=== PATIENT | male | born 1955 ===

== ENCOUNTER 2021-01-09 22:53 | Inpatient (IN) | payer MEDICARE ==
[~2021-01-09] VITALS: Ht 177.8 cm; Wt 89.6 kg
--- NOTE | 2021-01-09 23:07 | NUR ---
PT C/O OF TESTICULAR AND LOWER ABD PAIN EARLIER TODAY WHILE FOLDING TABLES. HE BEGAN TO GET DIAPHORETIC WITH NAUSEA AND VOMITTED DINNER. DENIES CP, DIZZINESS, FEVER/CHILLS, AND SOB. DENIES BURNING WHEN URINATED. LAST BM THIS AM AND NORMAL. ATTACHED TO MONITORS. VSS. NADN. BED IN LOW POSITION, RAILS ENGAGED. CALL LIGHT ON LAP.
[2021-01-09] MEDS ORDERED: ACETAMINOPHEN 500 MG TABLET PO ONE (23:30)
[2021-01-09] MEDS ORDERED: ONDANSETRON 2MG/ML, 2ML IVPush ONE (23:30)
[2021-01-10] MEDS ORDERED: ONDANSETRON 2MG/ML, 2ML ONE ×3 (00:02→08:55)
[2021-01-10] MEDS ORDERED: ACETAMINOPHEN 500 MG TABLET ONE (00:02)
[2021-01-10 00:06] LABS: BASOPHILS % (AUTO) 1 % (0-1); EOSINOPHILS % (AUTO) 1 % (1-7); LYMPHOCYTES % (AUTO) 8 % (22-44); MEAN CORPUSCULAR HEMOGLOBIN 30.8 pg (27.5-34.5); MEAN CORPUSCULAR HGB CONC 35.1 g/dL (33.2-36.2); MEAN PLATELET VOLUME 8.9 fL (7.4-10.4); MONOCYTES % (AUTO) 5 % (2-9); NEUTROPHILS % (AUTO) 86 % (42-75); PLATELET COUNT 223 x10^3/uL (130-400); RED BLOOD COUNT 4.85 x10^6/uL (4.38-5.82)
--- NOTE | 2021-01-10 00:08 | NUR ---
ATTACHED TO CARD MONITORS. HR STABLE.
--- NOTE | 2021-01-10 00:17 | NUR ---
Patient is resting comfortably in bed. Bed in lowest, rails engaged, call light on lap. Vital Signs within normal limits. WCTM.
--- NOTE | 2021-01-10 00:43 | NUR ---
CT PENDING CREATINE
[2021-01-10 01:16] LABS: ALBUMIN 3.7 g/dL (3.4-5.0); ANION GAP 7 mmol/L (5-15); CHLORIDE 103 mmol/L (98-107)
[2021-01-10 01:23] LABS: ALANINE AMINOTRANSFERASE 25 U/L (12-78); ALKALINE PHOSPHATASE 75 U/L (45-117); CREATININE 0.97 mg/dL (0.7-1.3); TOTAL PROTEIN 6.9 g/dL (6.4-8.2); TROPONIN I < 0.015 ng/mL (0.000-0.045)
[2021-01-10 01:32] LABS: BILIRUBIN,TOTAL 0.5 mg/dL (0.2-1.0)
--- NOTE | 2021-01-10 01:40 | NUR ---
SPOKE TO [facility] AND THEY STATED THEY WILL BE TAKING PT AFTER CODE NEURO. CT WAS WAITING FOR CREATININE TO COME BACK.
--- NOTE | 2021-01-10 01:49 | NUR ---
PT OFF UNIT IN IMAGING.
[2021-01-10] MEDS ORDERED: OMNIPAQUE 350 MG/ML, 100ML BOTTLE ONE (01:52)
--- NOTE | 2021-01-10 02:04 | NUR ---
BREAK RN: PT. RESTING ON GURNEY, 2L O2 VIA NC PLACED PT. DESAT TO 88% AT THIS TIME. PT. DENIES NEEDS. AWAITING RAD READ FROM CT. ALL SAFETY MEASURS OBSERVED.
[2021-01-10] MEDS ORDERED: ONDANSETRON 2MG/ML, 2ML IVPush ONE (03:00)
--- NOTE | 2021-01-10 03:01 | NUR ---
PT AMBULATED TO BATHROOM AND BACK WITH STEADY GAIT.
[2021-01-10 03:18] LABS: MICROSCOPIC AUTO
[2021-01-10] MEDS ORDERED: LIDOCAINE 4% TOPICAL SOLUTION 50 ML TP ONE (03:30)
[2021-01-10] MEDS ORDERED: TAMS-11 PO (03:42)
[2021-01-10] MEDS ORDERED: DUTA0.5C PO (03:42)
[2021-01-10] MEDS ORDERED: ASPI-963 PO (03:42)
[2021-01-10] MEDS ORDERED: LOSA100T14 PO (03:42)
[2021-01-10] MEDS ORDERED: AMLO-150 PO (03:42)
--- NOTE | 2021-01-10 03:48 | NUR ---
PLACED 18 BULGARIAN NG TUBE IN PTS RIGHT NARE. PT TOLERATED WELL BUT VOMITTED AFTER THE PROCEDRUE. XRAY TACH OUTSIDE ROOM FOR PLACEMENT. [facility] AT BEDSIDE FOR EVAL.
[2021-01-10] MEDS ORDERED: PROMETHAZINE 25 MG/ML, 1ML IM PRN (04:00)
[2021-01-10] MEDS ORDERED: morphine SULFATE 10 MG/ML, 1ML IVPush PRN (04:00)
[2021-01-10] MEDS ORDERED: LACTATED RINGERS 1,000 ML IV SCH (04:00)
--- NOTE | 2021-01-10 04:08 | NUR ---
GAVE REPORT TO JUSTIN [employer]
[2021-01-10 04:42] VITALS: BP 180/97
[2021-01-10 05:08] VITALS: BP 196/89
[2021-01-10] MEDS ORDERED: hydrALAzine 20 MG/ML, 1ML IV PRN ×2 (05:30→08:00)
[2021-01-10] MEDS ORDERED: POTASSIUM CHLORIDE 40 MEQ in SODIUM CHLORIDE 0.9% 500 ML IV ONE (05:30)
[2021-01-10] MEDS ORDERED: LABETALOL 5MG/ML, 20ML IVPush PRN (05:30)
[2021-01-10 06:40] VITALS: BP 155/91
[2021-01-10] MEDS ORDERED: EPINEPHRINE 1 MG/ML, 1ML ONE (07:04)
[2021-01-10] MEDS ORDERED: BUPIVACAINE/PF 0.5% ONE (07:04)
[2021-01-10] MEDS ORDERED: MIDAZOLAM 1 MG/ML, 2ML ONE (07:30)
[2021-01-10] MEDS ORDERED: FENTANYL PF 250 MCG/5ML ONE (07:30)
[2021-01-10] MEDS ORDERED: CHLORHEXIDINE 15 ML UDC ONE (07:34)
[2021-01-10] MEDS ORDERED: MEPERIDINE/PF 25MG/0.5ML IVPush PRN (08:00)
[2021-01-10] MEDS ORDERED: FENTANYL PF 100 MCG/2ML IV PRN (08:00)
[2021-01-10] MEDS ORDERED: KETOROLAC 30 MG/1 ML IV PRN (08:00)
[2021-01-10] MEDS ORDERED: OXYcodone 5 MG/5 ML ORAL.SOL UDC PO PRN (08:00)
[2021-01-10] MEDS ORDERED: DIAZEPAM 5 MG/ML, 2ML IVPush PRN (08:00)
[2021-01-10] MEDS ORDERED: ALBUTEROL SULFATE 2.5 MG/3 ML NPPB PRN (08:00)
[2021-01-10] MEDS ORDERED: ACETAMINOPHEN 325 MG TABLET PO PRN (08:00)
[2021-01-10] MEDS ORDERED: HYDROmorphone 2 MG/ML, 1ML IVPush PRN (08:00)
[2021-01-10] MEDS ORDERED: PROMETHAZINE 25 MG/ML, 1ML IV PRN (08:00)
[2021-01-10] MEDS ORDERED: LABETALOL 5MG/ML, 20ML IV PRN (08:00)
[2021-01-10] MEDS ORDERED: CEFAZOLIN 1,000 MG ONE (08:55)
[2021-01-10] MEDS ORDERED: GLYCOPYRROLATE 0.2MG/1ML, 5ML ONE (08:55)
[2021-01-10] MEDS ORDERED: PROPOFOL 10 MG/ML, 20ML ONE (08:55)
[2021-01-10] MEDS ORDERED: DEXAMETHASONE 4 MG/ML, 1ML ONE (08:55)
[2021-01-10] MEDS ORDERED: NEOSTIGMINE 1 MG/ML, 10ML ONE (08:55)
[2021-01-10] MEDS ORDERED: ROCURONIUM 10MG/ML,5ML ONE (08:55)
[2021-01-10] MEDS ORDERED: SUCCINYLCHOLINE 20 MG/ML, 10ML ONE (08:55)
[2021-01-10] MEDS ORDERED: D5%-0.45NACL+KCL 20MEQ 1,000 ML IV SCH (09:30)
[2021-01-10] MEDS: IBUPROFEN 800 MG TABLET PO SCH ×3 (10:45→20:55)
[2021-01-10 13:14] VITALS: BP 179/98
[2021-01-10 19:43] VITALS: BP 157/85
[2021-01-10] MEDS: DOCUSATE 100 MG CAPSULE PO SCH (20:55)
[2021-01-11] MEDS: ACETAMINOPHEN 325 MG TABLET PO PRN ×2 (00:29→04:59)
[2021-01-11 00:41] VITALS: BP 170/73
[2021-01-11 04:04] VITALS: BP 152/78
[2021-01-11] MEDS ORDERED: DUTASTERIDE 0.5 MG CAPSULE PO SCH (09:00)
[2021-01-11] MEDS: ASPIRIN 81 MG TABLET EC PO SCH (09:54)
[2021-01-11] MEDS: AMLODIPINE 5 MG TABLET PO SCH (09:55)
[2021-01-11] MEDS: LOSARTAN 100 MG TAB PO SCH (09:55)
[2021-01-11] MEDS: ENOXAPARIN 40 MG/0.4 ML SQ SCH (09:55)
[2021-01-11] MEDS: TAMSULOSIN 0.4 MG CAP.ER.24H PO SCH (09:55)
[2021-01-11] MEDS: IBUPROFEN 800 MG TABLET PO SCH ×3 (09:55→20:43)
[2021-01-11] MEDS: DOCUSATE 100 MG CAPSULE PO SCH ×2 (09:55→20:43)
[2021-01-11 09:59] VITALS: BP 138/78
[2021-01-11 14:52] VITALS: BP 153/79
[2021-01-11 19:56] VITALS: BP 126/73
[2021-01-12 02:39] VITALS: BP 113/68
[2021-01-12 07:30] VITALS: BP 131/75
[2021-01-12] MEDS: DOCUSATE 100 MG CAPSULE PO SCH (08:21)
[2021-01-12] MEDS: TAMSULOSIN 0.4 MG CAP.ER.24H PO SCH (08:21)
[2021-01-12] MEDS: AMLODIPINE 5 MG TABLET PO SCH (08:21)
[2021-01-12] MEDS: IBUPROFEN 800 MG TABLET PO SCH ×2 (08:21→15:20)
[2021-01-12] MEDS: LOSARTAN 100 MG TAB PO SCH (08:22)
[2021-01-12] MEDS: ASPIRIN 81 MG TABLET EC PO SCH (08:22)
[2021-01-12] MEDS: ENOXAPARIN 40 MG/0.4 ML SQ SCH (08:22)
[2021-01-12 14:28] VITALS: BP 122/71
[2021-01-12 16:47] VITALS: BP 128/64
== END 2021-01-12 17:19 | disposition home or self-care (01) | DRG 330 ==
LOC: ED 01-10 03:30 → SUATTDRO 01-10 03:34 → EDIP 01-10 04:16 → 4NE 01-10 04:35
PROVIDERS: ADMIT Student in an Organized Health Care Education/Training Program; ATTEND Internal Medicine
PROC: 0DT84ZZ Resection of Small Intestine, Percutaneous Endoscopic Approach (ICD-10-PCS; 2021-01-10)
PROC: 8E0W4CZ Robotic Assisted Procedure of Trunk Region, Percutaneous Endoscopic Approach (ICD-10-PCS; 2021-01-10)
PROC: 0T9B70Z Drainage of Bladder with Drainage Device, Via Natural or Artificial Opening (ICD-10-PCS; 2021-01-10)
PROC: 0YQ54ZZ Repair Right Inguinal Region, Percutaneous Endoscopic Approach (ICD-10-PCS; principal; 2021-01-10 07:30)
DX: K40.30 Unilateral inguinal hernia, with obstruction, without gangrene, not specified as recurrent (principal); R18.8 Other ascites; I10 Essential (primary) hypertension; N40.0 Benign prostatic hyperplasia without lower urinary tract symptoms; Z20.822 Contact with and (suspected) exposure to COVID-19
CPT/HCPCS: 36415; 74018; 74177; 80053; 81001; 83605; 83690; 84484; 85025; 87635; 88307; 93005; 96374; 96375; G0378; J0171; J0690; J1100; J1650; J2250; J2405; J2704; J2710; J3010; J3480; Q9967; J0330; J0360; J7040; J7120